=== PATIENT | male | born 1960 | race Native Hawaiian/Other Pacific Islander ===

== ENCOUNTER 2019-06-11 22:03 | Emergency (ER) | payer OTHER, SELFPAY ==
[2019-06-11 22:11] VITALS: BP 154/83; PULSE 71; RESP 16; TEMP 36.4; O2SAT 99; BMI 23.6
[2019-06-11] MEDS: ONDANSETRON 4 MG/2 ML INJ IV (22:29)
[2019-06-11] MEDS: SODIUM CHLORIDE 0.9% 1,000 ML 1000 ML IV (22:29)
--- NOTE | 2019-06-11 22:32 | ED.NAVMDI ---
HPI - Nausea/Vomiting/Diarrhea General Chief complaint: Nausea/Vomiting/Diarrhea Stated complaint: vomiting Time Seen by Provider: 06/11/19 22:10 Source: patient Mode of arrival: Family Vehicle Limitations: no limitations History of Present Illness HPI Narrative: 59-year-old male nonsmoker presents with 2 episodes of vomiting into of diarrhea since 03/21. He denies being dizzy, weak or lightheaded. Denies fever or chills. He denies eating any bad food. He denies exposure to ill persons. He denies recent international travel. He has no chest pain or shortness of breath but does have some generalized abdominal discomfort Related Data Allergies Allergy/AdvReac Type Severity Reaction Status Date / Time No Known Drug Allergies Allergy Verified 06/11/19 23:28 Review of Systems Constitutional Constitutional: Denies chills, Denies fatigue, Denies fever(s), Denies frequent falls, Denies lethargy and Denies weakness Eyes Eyes: Denies change in vision, Denies eye discharge, Denies irritation and Denies loss of vision ENT Ears, Nose, Mouth, and Throat: Denies change in voice, Denies dizziness, Denies neck pain, Denies sore throat and Denies throat swelling Cardiovascular Cardiovascular: Denies chest pain, Denies irregular heart rhythm, Denies lightheadedness, Denies palpitations, Denies dyspnea, Denies dyspnea on exertion and Denies orthopnea Respiratory Respiratory: Denies cough, Denies dyspnea, Denies dyspnea on exertion and Denies wheezing Gastrointestinal Gastrointestinal: Denies abdominal pain, Denies change in bowel habits, Denies diarrhea, Denies nausea and Reports vomiting Genitourinary Genitourinary: Denies hematuria, Denies flank pain, Denies urinary incontinence and Denies urinary urgency Musculoskeletal Musculoskeletal: Denies back pain, Denies muscle weakness, Denies neck pain, Denies numbness and Denies tingling Integumentary/Breasts Skin/Breast: Denies pruritus, Denies erythema, Denies rash and Denies wounds Neurologic Neurologic: Denies behavioral changes, Denies confusion, Denies dizziness, Denies frequent falls, Denies loss of vision, Denies numbness, Denies tingling and Denies weakness Psychiatric Psychiatric: Denies anxiety, Denies behavioral changes, Denies confusion, Denies depression, Denies homicidal ideation and Denies suicidal ideation Endocrine Endocrine: Denies fatigue, Denies flushing and Denies palpitations Hematologic/Lymphatic Hematologic/Lymphatic: Denies easy bruising Allergic/Immunologic Allergic/Immunologic: Denies urticaria, Denies throat swelling and Denies wheezing Patient History Social History Smoking Status: Never smoker alcohol intake frequency: a few times a month Alcohol type: beer Substance Use Type: does not use Exam Narrative Exam Narrative: GENERAL: [59] year old patient appears stated age. Well-nourished, well-developed patient, in mild distress. HEAD: Atraumatic. Normocephalic. EYES: Pupils equal round and reactive. Extraocular motions intact. No scleral icterus. No injection or drainage. ENT: Nose without bleeding, purulent drainage. Throat without erythema, tonsillar hypertrophy or exudate. Airway patent. NECK: Trachea midline. Non tender CARDIOVASCULAR: Regular rate and rhythm without murmurs, gallops, or rubs. RESPIRATORY: Clear to auscultation. Breath sounds equal bilaterally. No wheezes, rales, or rhonchi. GASTROINTESTINAL: Abdomen soft, non-tender, nondistended. EXTREMITIES: No edema or joint tenderness. BACK: Nontender without deformity or crepitance. No flank tenderness. NEURO: AOx3. SKIN: No rash or erythema of visible areas Initial Vital Signs Initial Vital Signs: Vital Signs Temperature 97.6 F 06/11/19 22:11 Pulse Rate 71 06/11/19 22:11 Respiratory Rate 16 06/11/19 22:11 Blood Pressure 154/83 H 06/11/19 22:11 Pulse Oximetry 99 06/11/19 22:11 Course Course Course Narrative: Patient tolerated orthostatics without difficulty, no abnormal findings or symptoms. He was able to ambulate to the bathroom without difficulty. Orders Ordered: ED Orders 06/11/19 22:15 Complete Blood Count AUTO DIFF Stat Comprehensive Metabolic Panel Stat Discontinued Medications Sodium Chloride (Normal Saline 0.9%) 1,000 mls @ 1,000 mls/hr IV BOLUS ONE Stop: 06/11/19 23:09 Last Infusion: 06/11/19 23:30 Dose: 1,000 mls/hr Documented by: Admin: 06/11/19 22:29 Dose: 1,000 mls/hr Documented by: [email or web address] Ondansetron HCl (Zofran) 4 mg IV NOW ONE Stop: 06/11/19 22:11 Last Admin: 06/11/19 22:29 Dose: 4 mg Documented by: MARYSOLFARL Ondansetron HCl (Zofran Odt Prepack) 1 bottle MISC SEEINSTR ONE Stop: 06/12/19 00:05 Last Admin: 06/12/19 00:12 Dose: 1 bottle Documented by: RACHEL Potassium Chloride (Potassium Chloride) 40 meq PO NOW ONE Stop: 06/11/19 23:01 Last Admin: 06/11/19 23:10 Dose: 40 meq Documented by: LETICIA Vital Signs Vital signs: Vital Signs - 8 hr 06/11/19 22:11 06/11/19 23:40 06/12/19 00:14 Temperature 97.6 F Pulse Rate 71 67 Pulse Rate [Orthostatic Lying] 84 Pulse Rate [Orthostatic Sitting] 78 Pulse Rate [Orthostatic Standing] 82 Respiratory Rate 16 19 Blood Pressure 154/83 H 100/68 Blood Pressure [Orthostatic Lying] 100/68 Blood Pressure [Orthostatic Sitting] 121/81 Blood Pressure [Orthostatic Standing] 125/87 Pulse Oximetry 99 100 MDM - Nausea/Vomiting/Diarrhea Lab Data Result diagrams: 06/11/19 22:15 06/11/19 22:15 Labs: Lab Results 06/11/19 06/11/19 Range/Units 22:15 22:15 WBC 6.8 (4.5-11.0) X10^3/uL RBC 5.20 (4.5-5.9) X10^6/uL Hgb 17.2 (13.5-17.5) g/dL Hct 47.9 (41-53) % MCV 92.1 (80-100) fL MCH 33.0 (26-34) PG MCHC 35.9 (30-36) % RDW 12.5 (11.6-14.8) % Plt Count 199 (150-400) X10^3/uL Neut % (Auto) 64.9 (50-75) % Lymph % (Auto) 23.7 L (25-40) % [place] % (Auto) 7.3 (3-14) % Eos % (Auto) 3.2 (2-4) % Baso % (Auto) 0.9 (0-2) % Neut # (Auto) 4500 (4532-3560) /uL Lymph # (Auto) 1600 (0926-2607) /uL [place] # (Auto) 500 (0-900) /uL Eos # (Auto) 200 (0-450) /uL Baso # (Auto) 100 (0-100) /uL Sodium 138 (137-145) mmol/L Potassium 3.0 L (3.4-5.1) mmol/L Chloride 98 (98-107) mmol/L Carbon Dioxide 31 (22-32) mmol/L BUN 16 (9-20) mg/dL Creatinine 1.00 (0.66-1.25) mg/dL Estimated GFR > 60.0 (>60) mL/min BUN/Creatinine Ratio 16.0 (6-22) Glucose 133 H (70-100) mg/dL Calcium 9.4 (8.4-10.2) mg/dL Total Bilirubin 0.8 (0.2-1.3) mg/dL AST 38 (17-59) IU/L ALT 43 (<50) IU/L Alkaline Phosphatase 86 (38-126) U/L Total Protein 7.7 (6.3-8.2) g/dL Albumin 4.8 (3.5-5.0) g/dL Globulin 2.9 (1.7-4.1) g/dL Albumin/Globulin Ratio 1.7 (1.0-2.8) Urine Dip Bedside Urine Glucose Negative Bedside Urine Bilirubin - Negative Bedside Urine Ketone +/- 5 Urine Specific [place] 1.010 Bedside Urine Occult Blood - Negative Bedside Urine pH 8.0 Bedside Urine Protein - Negative Bedside Urine Urobilinogen - Negative Bedside Urine Nitrite - Negative Bedside Urine Leukocytes - Negative Esterase Discharge Plan Departure Patient Disposition: Home Clinical Impression: Acute hypokalemia Vomiting Qualifiers: Vomiting type: unspecified Vomiting Intractability: non-intractable Nausea presence: with nausea Qualified Code(s): R11.2 - Nausea with vomiting, unspecified Discharge Date/Time: 06/12/19 00:14 Instructions: Nausea and Vomiting-Adult Activity Restrictions/Additional Instructions: *You have been diagnosed with [vomiting and hypokalemia] *What to do: *Take medications as directed *Follow up with your primary care provider in 2-3 days, call for an appointment. Let them know you were seen in the Emergency Department and that we ask that you be seen in follow up *Return to ER if you should have any new, worsening or concerning symptoms 1. Drink plenty of fluids with frequent small sips. 2. For the next 24 hours a clear liquid diet is advised. After that please employ a brat diet which would include bananas, rice, apples, toast. 3. Please take medications as directed. 4. Please follow-up with your doctor in the next 1-2 days. Call the office for an appointment. 5. Please return to the emergency Department for any worsening or persistent symptoms, such as increasing pain or fever.
[2019-06-11 22:36] LABS: Add Manual Diff / Slide Review NO; Basophils Absolute Auto 100 /uL (0-100); Basophils Percent Auto 0.9 % (0-2); Eosinophils Absolute Auto 200 /uL (0-450); Eosinophils Percent Auto 3.2 % (2-4); Hematocrit 47.9 % (41-53); Hemoglobin 17.2 g/dL (13.5-17.5); Lymphocytes Absolute Auto 1600 /uL (1100-4500); Lymphocytes Percent Auto 23.7 % (25-40); Mean Corpuscular HGB Conc 35.9 % (30-36); Mean Corpuscular Volume 92.1 fL (80-100); Monocytes Absolute Auto 500 /uL (0-900); Monocytes Percent Auto 7.3 % (3-14); Neutrophils Absolute Auto 4500 /uL (1500-7000); Neutrophils Percent Auto 64.9 % (50-75); Platelet Count 199 X10^3/uL (150-400); Red Cell Distribution Width 12.5 % (11.6-14.8); White Blood Cell Count 6.8 X10^3/uL (4.5-11.0)
[2019-06-11 22:46] LABS: Alanine Aminotransferase 43 IU/L (<50); Albumin 4.8 g/dL (3.5-5.0); Albumin Globulin Ratio 1.7 (1.0-2.8); Alkaline Phosphatase 86 U/L (38-126); Aspartate Aminotransferase 38 IU/L (17-59); Bilirubin Total 0.8 mg/dL (0.2-1.3); Blood Urea Nitrogen 16 mg/dL (9-20); Calcium 9.4 mg/dL (8.4-10.2); Carbon Dioxide 31 mmol/L (22-32); Chloride 98 mmol/L (98-107); Estimated Glomerular Filt Rate > 60.0 mL/min (>60); Globulin 2.9 g/dL (1.7-4.1); Glucose 133 mg/dL (70-100); HEMOLYSIS < 15 (0-50); Sodium 138 mmol/L (137-145); Total Protein 7.7 g/dL (6.3-8.2)
[2019-06-11] MEDS: POTASSIUM CHLORIDE 20 MEQ/15 ML UDC 40 MEQ PO (23:10)
[2019-06-11 23:40] VITALS: BP 100/68; BP 121/81; BP 125/87; PULSE 78; PULSE 82; PULSE 84
[2019-06-12] MEDS: ONDANSETRON 4 MG ODT PREPACK 1 BOTTLE MISC (00:12)
[2019-06-12 00:14] VITALS: BP 100/68; PULSE 67; RESP 19; O2SAT 100
== END 2019-06-12 00:14 | disposition home or self-care (01) ==
PROVIDERS: Emergency Provider Emergency Medicine
DX: E87.6 Hypokalemia (principal); R11.2 Nausea with vomiting, unspecified
CPT/HCPCS: 36415; 80053; 81003; 85025; 96361; 96374; 99283; 99284; J2405